=== PATIENT | male | born 1990 | race Caucasian/White ===

== ENCOUNTER 2022-10-06 09:14 | Emergency (ER) | payer OTHER, SELFPAY ==
--- NOTE | ~2022-10-06 | XR_ITS ---
EXAMINATION: XR KNEE, LEFT CLINICAL INFORMATION: Pain after kneeling COMPARISON: None available. TECHNIQUE: Four views of the left knee. FINDINGS: A small joint effusion may be present. Bones and soft tissues are otherwise unremarkable. No fracture. Alignment is anatomic. Joint spaces are well maintained. No abnormal soft tissue calcification. XR/XR knee LT 4V IMPRESSION: A small joint effusion may be present.
[2022-10-06 09:46] VITALS: BP 142/77; PULSE 76; RESP 16; TEMP 36.2; O2SAT 97; BMI 41.3
--- NOTE | 2022-10-06 12:04 | ED.EXTPRO ---
HPI - Extremity Problem General Chief complaint: Extremity Problem Stated complaint: Left leg pain Time Seen by Provider: 10/06/22 11:34 Source: patient and RN notes reviewed Mode of arrival: ambulatory Limitations: no limitations History of Present Illness HPI Narrative: This is a 32-year-old male, with no known past medical history, who presents emergency department with complaints of left knee pain x3 days. Patient reports that he was kneeling for prolonged period of time on carpeted concrete wall he is trying to move, and noticed that he had increasing pain since. He states the pain worsens with ambulation and weight-bearing. He has been using crutches and and knee brace without any relief. He took ibuprofen yesterday which provided him with little relief. Denies any fevers or chills. He otherwise feels well. Related Data Previous Rx's Medication Instructions Recorded ibuprofen 600 mg tablet 600 mg PO Q6H PRN pain #45 tabs 10/06/22 Allergies Allergy/AdvReac Type Severity Reaction Status Date / Time No Known Allergies Allergy Verified 10/06/22 09:21 Review of Systems Review of Systems: Constitutional: No Weight loss, No Fever, No Chills, No Night Sweats, No Fatigue, No Malaise ENT/Mouth: No Hearing loss, No Ear Pain, No Nasal Congestion, No Sinus Pain, No Hoarseness, No sore throat, No Rhinorrhea, No Swallowing Difficulty Eyes: No Eye Pain, No Swelling, No Redness, No Foreign Body, No Discharge, No Vision Changes Cardiovascular: No Chest Pain, No SOB, No Dyspnea on Exertion, No Orthopnea, No Edema, No Palpitations Respiratory: No Cough, No Sputum, No Wheezing, No Smoke Exposure, No Dyspnea Gastrointestinal: No Nausea, No Vomiting, No Diarrhea, No Constipation, No Abdominal pain, No Hematochezia, No Melena Genitourinary: No irregular bleeding, No Dysuria, No Urinary Frequency, No Hematuria, No Urinary Incontinence/retention, No Urgency, No Flank Pain, No Urinary Flow Changes, No Hesitancy Musculoskeletal: +knee pain No joint pain, No Myalgias, No Joint Swelling Skin: No Skin Lesions, No rash Neuro: No Weakness, No Numbness, No Paresthesias, No Loss of Consciousness, No Dizziness, No Headache Psych: No Anxiety/Panic, No Depression, No SI/HI/AH/VH, No Social Issues, Heme/Lymph: No Bruising, No Bleeding,No Lymphadenopathy Endocrine: No Polyuria, No Polydipsia, No Temperature Intolerance [facility] Social History Social History Advance Directives: No Physical Exam Vital Signs: Vital Signs: Last Vital Signs Temp 97.1 F 10/06/22 09:46 Pulse 76 10/06/22 09:46 Resp 16 10/06/22 09:46 BP 142/77 H 10/06/22 09:46 Pulse Ox 97 10/06/22 09:46 O2 Del Method Room Air 10/06/22 09:46 BMI result Body Mass Index 41.3 General: Awake, alert, and oriented X3. No acute distress. HEENT: Normal inspection CVS: Normal heart rate and rhythm. Pulses normal. Respiratory: No respiratory distress Skin: Warm, dry, no rashes noted to exposed skin. Normal skin color. Normal skin turgor. Extremities: Left knee with effusion, no erythema. No patellar ballottement, tenderness to palpation along the left medial and lateral joint line. Mild tenderness with varus and valgus strain, anterior and posterior drawer test negative. No calf tenderness Neuro: Oriented X 3. No motor deficit. No sensory deficit. Medical Decision Making Medical Decision Making MDM Narrative: 32-year-old male, no medical history, presenting to the emergency department for left knee pain x3 days. Patient had prolonged time on his knees while he has been moving. On examination patient has mild tenderness on the mediolateral joint line, no patellar ballottement. Negative anterior drawer, pain with varus and valgus strain. X-rays obtained revealing small joint effusion, patient presenting to the emergency department with crutches, patient given Antwon wrap and crutches, prescription for ibuprofen, given RICE education, and return precautions should his symptoms worsen. Also given referral to [facility] as needed. Patient understands and agrees with plan. Differential Diagnosis Differential Diagnoses: The differential diagnosis associated with the presentation includes Left knee strain, sprain, contusion, ligamentous injury, effusion, fracture Radiology Impression Discussion of test interpretation with radiology: I have reviewed the radiologist's reading. Radiologist Impression: EXAMINATION: XR KNEE, LEFT CLINICAL INFORMATION: Pain after kneeling? COMPARISON: None available.? TECHNIQUE: Four views of the left knee. FINDINGS: A small joint effusion may be present. Bones and soft tissues are otherwise unremarkable. No fracture. Alignment is anatomic. Joint spaces are well maintained. No abnormal soft tissue calcification.? XR/XR knee LT 4V IMPRESSION: A small joint effusion may be present. ? Dictated By: iB Marmolejo MD Signed By: <Electronically signed by Bi Marmolejo MD in OV> 10/06/22 1108 DD/ 1003 TD/TT:? Field Contractor: Discharge Plan Discharge Clinical Impression: Knee pain, left Patient Disposition: Home, Self-Care Instructions: Knee Pain (ED) Additional Instructions: Your x-ray showed a small joint effusion, which means you have swelling around your knee. Please wear Antwon wrap and use crutches over the next couple a days. Rest, ice, using the Antwon wrap, and elevation will help reduce the inflammation. Take prescribed medication as directed. If any new or worsening symptoms occur please return for re-evaluation. I have included a referral to Orthopedics should her symptoms not resolve you can follow-up. Call for an appointment. Prescriptions: New ibuprofen 600 mg tablet 600 mg PO Q6H PRN (Reason: pain) Qty: 45 0RF Referrals: [facility] [Provider Group] Stand Alone Forms: Work/School Release Interventions: ED Discharge Assessment Last Done: 10/06/22 12:11 Discharge Date/Time: 10/06/22 12:12
== END 2022-10-06 12:12 | disposition home or self-care (01) ==
PROVIDERS: Emergency Provider Internal Medicine
DX: M25.562 Pain in left knee (principal)
CPT/HCPCS: 73564; 99282; 99283

== ENCOUNTER 2024-05-24 10:22 | Outpatient (REF) | payer OTHER, SELFPAY ==
--- OUTSIDE RECORDS SUMMARY | 2024-05-24 13:43 | XMS_ITS | Clinical Summary ---
Author Organization [facility] Address [address] [place] [address] Care Team Providers Care Operations Label Clerk Name Role Phone Unavailable Primary Care Provider Unavailabl e Allergies No known active allergies Medications No known medications Active Problems No known active problems Social History Tobacco Use Types Packs/Day Years Used Date Smoking Tobacco: Light Smoker Cigarettes Smokeless Tobacco: Never Alcohol Use Standard Drinks/Week Comments Yes 0 (1 standard drink = 0.6 oz pur e alcohol) Social Sex and Gender Information Value Date Recorded Sex Assigned at Not on file Legal Sex Male 4:45 PM EST Gender Identity Not on file Sexual Orientation Not on file Last Filed Vital Signs Vital Sign Reading Time Taken Comments Blood Pressure 139/86 06/04/2015 5:12 PM EST Pulse 93 06/04/2015 5:12 PM EST Temperature 37.1 ??C (98.7 ??F) 06/04/2015 5:12 PM ES T Respiratory Rate 20 06/04/2015 5:12 PM EST Oxygen Saturation - - Inhaled Oxygen Concentration - - Weight - - Height - - Body Mass Index - - Plan of Treatment Health Maintenance Due Date Last Done Comments Hepatitis C Screening 1991 DTaP/Tdap/Td (1 - Tdap) 2009 Hep B (1 of 3 - 19+ 3-dose series) 2010 COVID-19 Vaccine (2023-2 5 season) 2024 Influenza (#1) 2024 Zoster (Shingrix) (1 of 2) 2041 HPV Vaccine Aged Out No longer eligi ble based on patient's age to complete this topic Hep A Aged Out No longer eligi ble based on patient's age to complete this topic Hib Aged Out No longer eligi ble based on patient's age to complete this topic Meningococcal ACWY Aged Out No longer eligible based on patient's age to complete this topic Pneumococcal Aged Out No longer eligi ble based on patient's age to complete this topic Insurance * Guarantor: [employer] Account Type Relation to Patient Date of Phone Billing Address Personal/Family [address] [place] [id number] BCBS FEE FOR SERVICE PPO
[2024-05-24 14:56] LABS: Influenza A PCR POSITIVE (Negative); Influenza B PCR NEGATIVE (Negative); Resp Syncy Virus RNA Qual PCR NEGATIVE (Negative); SARS COV2 PCR INHOUSE NEGATIVE (Negative)
== END 2024-05-24 10:23 | disposition home or self-care (01) ==
LOC: HO.LAB 10:22
PROVIDERS: Nurse Practitioner Family
DX: R09.89 Other specified symptoms and signs involving the circulatory and respiratory systems (principal); J06.9 Acute upper respiratory infection, unspecified
CPT/HCPCS: 0241U

== ENCOUNTER 2024-05-24 10:22 | Outpatient (AMB) | payer OTHER, SELFPAY ==
--- NOTE | 2024-05-24 11:03 | MHC.OFFWIV ---
Intake Vital Signs 05/24/24 11:07 Weight 273 lb BP 120/84 Blood Pressure Location Lt brachial Position Sitting Pulse 104 H Pulse Source Pulse Oximeter Temp 98.5 F Temp Source Oral Pulse Oximetry (%) 97 Oxygen Delivery Method Room Air Intake Visit Reasons: EP Chest congestion, cough, congestion Intake Note: Patient here for chest congestion, cough which has been present for 11 days. Patient Tobacco Use Status: Never used Tobacco Allergies No Known Allergies Allergy (Verified 05/24/24 11:08) Do you need a note to return to daycare/school/sports/work: No HPI HPI Comments History of Present Illness Details 34 y/o male patient who presents to the walk in clinic with c/o URI symptoms since last Tuesday. PFSH Social History Patient Tobacco Use Status: Never used Tobacco Review of Systems Const All systems reviewed & are unremarkable except as noted in HPI and below Physical Exam Vital Signs: Last Vital Signs Temp 98.5 F 05/24/24 11:07 Pulse 104 H 05/24/24 11:07 BP 120/84 05/24/24 11:07 Pulse Ox 97 05/24/24 11:07 Oxygen Delivery Method Room Air 05/24/24 11:07 Const General: cooperative and no acute distress Nutritional Appearance: obese morbidly obese Orientation/consciousness: patient oriented x3 HEENT Head: Yes normocephalic Ears: external ears normal and TM's normal bilaterally General nose exam: Nasal discharge present Face and sinus: Yes sinuses nontender Mouth: moist mucous membranes Throat: Yes posterior oropharynx normal Resp Effort & Inspection: normal respiratory effort and able to speak in complete sentences Auscultation: clear to auscultation bilaterally, no crackles, no rales, no rhonchi and no wheezes Cardio Heart sounds: S1 normal heart sound present and S2 normal heart sound present Neuro General: patient oriented x3 Assessment & Plan Assessment & Plan (1) Acute respiratory disease: Code(s): J06.9 - Acute upper respiratory infection, unspecified Plan: Ordered SARs Acetaminophen for pain relief. OTC cold remedies. Rest and hydrate well with fluids. Orders: Orders SARS-CoV2/FLU/RSV Today R09.89 - Other specified symptoms and signs involving the circulatory and respiratory systems Medications: Discontinued ibuprofen Discontinued Reason: Patient no longer taking 600 mg PO Q6H PRN 45 tabs 0RF pain Coding Level of Care Code Est Pt Level 3 (89531) Diagnoses Acute respiratory disease J06.9 Time Spent (min) 15
[2024-05-24 11:07] VITALS: BP 120/84; PULSE 104; TEMP 36.9; O2SAT 97
== END 2024-05-24 11:30 | disposition home or self-care (01) ==
PROVIDERS: Visit Provider Nurse Practitioner Family
DX: J06.9 Acute upper respiratory infection, unspecified (principal)

== ENCOUNTER 2024-09-05 13:30 | Outpatient (REF) | payer OTHER, SELFPAY ==
--- NOTE | ~2024-09-05 | XR_ITS ---
EXAMINATION: XR FOOT, LEFT CLINICAL INFORMATION: M79.672 - Pain in left foot COMPARISON: None available. TECHNIQUE: AP, lateral, and oblique views of the left foot. FINDINGS: No fracture, dislocation, or suspicious bone lesion. Normal bone mineralization. Normal alignment. Joint spaces are preserved. No significant arthropathy. Normal plantar arch. Tiny plantar and dorsal calcaneal spurs. Soft tissues appear normal. XR/XR foot LT 2V IMPRESSION: 1. No acute bony abnormalities. Electronically signed by: Eb Ludwig MD 09/05/2024 02:12 PM EDT
== END 2024-09-05 13:31 | disposition home or self-care (01) ==
LOC: HO.HMGCX 13:30
PROVIDERS: Visit Provider Physician Assistant
DX: M79.672 Pain in left foot (principal)
CPT/HCPCS: 73620

== ENCOUNTER 2024-09-05 13:30 | Outpatient (AMB) | payer OTHER, SELFPAY ==
--- NOTE | 2024-09-05 13:31 | AM.OFFWIN_ITS ---
Intake Vital Signs 09/05/24 13:34 Weight 273 lb BP 126/80 Blood Pressure Location Rt brachial Position Sitting Pulse 86 Pulse Source Pulse Oximeter Pulse Oximetry (%) 98 Oxygen Delivery Method Room Air Intake Visit Reasons: EP- hurt LT foot on outside of foot Intake Note: Patient here for radiating left foot pain that has been present for about 2 days. Patient Tobacco Use Status: Never used Tobacco Allergies No Known Allergies Allergy (Verified 09/05/24 13:34) Do you need a note to return to daycare/school/sports/work: Yes HPI HPI Comments History of Present Illness Details He presents to office with L lateral foot Ongoing x a few days Last week he twisted R ankle and put more pressure on his L Similar feeling in L lateral foot with previous fx Using a walking boot while on feet Pain level better with rest 2/10 Walking makes worse Used tylenol/motrin and ice with elevation [facility] Medical History (Updated 09/05/24 @ 13:39 by Selena Dumont PA-C) Influenza A Social History Patient Tobacco Use Status: Never used Tobacco Review of Systems Const Denies chills and Denies fever(s) Musc Reports deformity, Reports arthralgias and Reports joint swelling Skin/Breast Reports skin pain and Reports skin swelling Neuro Denies paresthesias Physical Exam Vital Signs: Last Vital Signs Pulse 86 09/05/24 13:34 BP 126/80 09/05/24 13:34 Pulse Ox 98 09/05/24 13:34 Oxygen Delivery Method Room Air 09/05/24 13:34 General: Non-toxic, NAD. Speaking full sentences. Skin: Warm dry throughout. moderate edema LLE dorsal aspect of foot near proximal 4/5th metatarsal bone. No laceration or abrasion. No other bilateral lower extremity edema Eye: EOMI Respiratory: No respiratory distress Cardiac: DP pulse intact LLE MSK: RLE- no tenderness to palpation LLE- Pt has + ttp to proximal 4/5th metatarsal bones. No digit. achilles, metatarsal 1-3 or calcaneus ttp. + full ROM dorsal/plantar flexion with some discomfort felt. Neurology: Alert. No aphasia or facial droop. Gait with slight limp using walking boot. Psych: Good mood and affect Assessment & Plan Assessment & Plan (1) Foot pain, left: Code(s): M79.672 - Pain in left foot Plan: Patient seen and evaluated. No RLE symptoms LLE xray: i viewed no fx Rest, ice, elevate nsaids Patient gave verbal understanding and had no additional questions or concerns at time of discharge All questions answered Orders: Orders XR foot LT 2V Today M79.672 - Pain in left foot Coding Level of Care Code Est Pt Level 3 (98503) Diagnoses Foot pain, left M79.672
[2024-09-05 13:34] VITALS: BP 126/80; PULSE 86; O2SAT 98
--- OUTSIDE RECORDS SUMMARY | 2024-09-05 14:45 | XMS_ITS | Clinical Summary ---
Author Organization [facility] Address [address] [place] [address] Care Team Providers Care Elastic Attacher Coverstitch Name Role Phone Unavailable Primary Care Provider [...] - 19+ 3-dose series) 2010 COVID-19 Vaccine ( - 2023-2 5 season) 2024 Influenza (Season Ended) 2024 Zoster (Shingrix) (1 of 2) 2041 [...] Patient Date of Phone Billing Address Personal/Family [address] [place] [id number] [employer] FEE FOR SERVICE PPO
== END 2024-09-05 14:10 | disposition home or self-care (01) ==
PROVIDERS: Visit Provider Physician Assistant
DX: M79.672 Pain in left foot (principal)

== ENCOUNTER → 2024-09-05 13:58 | Outpatient (BNV) | payer OTHER, SELFPAY | PROVIDERS: Visit Provider Radiology Diagnostic Radiology | DX: M79.672 Pain in left foot (principal) | CPT/HCPCS: 73620 ==

== ENCOUNTER 2025-01-02 11:49 | Outpatient (AMB) | payer OTHER, SELFPAY ==
[2025-01-02 12:37] VITALS: BP 106/60; PULSE 85; TEMP 36.7; O2SAT 97; BMI 39.1
--- NOTE | 2025-01-02 12:37 | AM.OFFWIN_ITS ---
Intake Vital Signs 01/02/25 12:37 Height 5 ft 9 in Weight 265 lb BMI 39.1 BP 106/60 Blood Pressure Location Lt brachial Position Sitting Pulse 85 Pulse Source Pulse Oximeter Temp 98.0 F Temp Source Oral Pulse Oximetry (%) 97 Oxygen Delivery Method Room Air Intake Visit Reasons: EP-lt side sore throat, lt ear pain, lt neck pain Patient Tobacco Use Status: Never used Tobacco Allergies amoxicillin Allergy (Intermediate, Verified 01/02/25 12:40) Rash Do you need a note to return to daycare/school/sports/work: No HPI HPI Comments History of Present Illness Details History - The patient is a 34-year-old male pres enting with left sided neck pain, ear pain, and throat discomfort. - Symptoms began 4 days ago with a sensa tion of a pulled neck muscle, progressing to ear pain, throat discomfort, and jaw pain. - No history of ear infections, recent f baron, change in hearing, drainage from ear or recent swimming. - The patient has an allergy to amoxicil rafael, previously causing a full-body rash. Physical Exam General: Cooperative, healthy appearing, comfortable and no acute distress Orientation/consciousness: Patient oriented x3 Limitations: No limitations Head: Normal to inspection Ears: Hearing grossly normal bilaterally, external ears normal and TM's normal right, left TM with erythema but no infection noted Nose: Normal external nose present, Normal nares present and No nasal discharge present Face and sinus: Normal facial exam and Yes sinuses nontender Mouth: Normal oral and palatal mucosa present and moist mucous membranes Throat: Yes tonsils normal, Yes uvula midline. Posterior oropharynx erythema, no exudates Eyes: Appearance normal, both eyes and all related structures Neck: Normal visual inspection, full ROM, TTP left side Respiratory: Normal respiratory effort, able to speak in complete sentences, not Actively coughing, no respiratory distress, not tachypneic, no tripod positioning and no use of accessory muscles Skin: No rashes or lesions noted Neuro: Patient oriented x3 Extremities: Normal to inspection and Yes no clubbing, cyanosis or edema [facility] Medical History (Updated 01/02/25 @ 13:18 by Zulma Edwards PA-C) Influenza A Social History Patient Tobacco Use Status: Never used Tobacco Review of Systems Const All systems reviewed & are unremarkable except as noted in HPI and below Physical Exam Vital Signs: Last Vital Signs Temp 98.0 F 09/03/25 12:37 Pulse 85 01/02/25 12:37 BP 106/60 01/02/25 12:37 Pulse Ox 97 01/02/25 12:37 Oxygen Delivery Method Room Air 01/02/25 12:37 BMI result Body Mass Index 39.1 Assessment & Plan Assessment & Plan (1) Otalgia of left ear: Code(s): H92.02 - Otalgia, left ear Plan: Patient was informed and verbally consented to the use of an ambient scribe for clinic note documentation during this visit Viral Upper Respiratory Infection - Conducted a viral panel to rule in/out viral infection. - Recommended symptomatic treatment with [id number] Flonase to reduce inflammation. - Advised to increase fluid intake to help clear lymph nodes. - If viral panel negative, cefpodoxime will be prescribed as an alternative to amoxicillin due to allergy. Patient will wait and see how he feels, if pain progresses, he will start the antibiotic. Orders: Orders Resp Pathogen Panel [place] [facility] Today J06.9 - Acute upper respiratory infection, unspecified Coding Level of Care Code New Pt Level 3 (42073) Diagnoses Otalgia of left ear H92.02
--- OUTSIDE RECORDS SUMMARY | 2025-01-02 14:23 | XMS_ITS | Clinical Summary ---
Author Organization [facility] Address [address] [place] [address] Care Team Providers Care Air Deodorizer Servicer Name Role Phone Unavailable Primary Care Provider [...] 93 06/04/2015 5:12 PM EST Temperature 37.1 C (98.7 F) 06/04/2015 5:12 PM EST Respiratory Rate 20 06/04/2015 5:12 PM EST [...] (Shingrix) (1 of 2) 2041 HPV Vaccine (No Doses Required) Completed Hep A Aged Out No longer eligi [...] Patient Date of Phone Billing Address Personal/Family [address] [place] [phone] BCBS FEE FOR SERVICE PPO
== END 2025-01-02 13:15 | disposition home or self-care (01) ==
PROVIDERS: Visit Provider Physician Assistant
DX: H92.02 Otalgia, left ear (principal)

== ENCOUNTER 2025-01-02 11:49 | Outpatient (REF) | payer OTHER, SELFPAY ==
--- OUTSIDE RECORDS SUMMARY | 2025-01-02 15:22 | XMS_ITS | Patient Health Record ---
Author Organization [facility] Address [address] [facility] [place] [address] Care Team Providers Care Cardiovascular Surgical Tech Name Role Phone Jignesh Poe Unavailable [phone] Reason For Referral No Information Medications Medication SIG (Take, Route, Fr equency, Duration) Notes Start Date End Date Status Cephalexin 500 MG 1 tablet Orally Twic e a day; Duration: 10 day(s) Not-Taking Social History Tobacco use other than smoking: Question Answer Notes Are you an other tobacco user? No Problems No Known Problems Plan Of Treatment Pending Test Test Name Order Date 20584- Debride <25 sq cm 06/21/2019 96857 I&D ABSCESS- SIMPLE,SINGLE 016 48253- I&D ABSCESS-COMPLICATED,MULTI 08/2019 Insurance Providers Payer Name Payer Address Payer Phone Subscriber Number Group Number Insured Name Patient Relationship to Insured Coverage Start Date Coverage End Date [facility] [id number] [place] [phone] [id number] Ant Deluna Self - patient is the insured Medical (General) History Medical History History ICD Code Back,Hip,and Knee pain Broken bones Chicken pox Surgical History Surgery Date(Month/Year)
[2025-01-02 17:35] LABS: Chlamydia pneumoniae PCR Not Detected (Not Detect.); Coronavirus 229E PCR Not Detected (Not Detect.); Coronavirus HKU1 PCR Not Detected (Not Detect.); Coronavirus NL63 PCR Not Detected (Not Detect.); Coronavirus OC43 PCR Not Detected (Not Detect.); RSV PCR Not Detected (Not Detect.); Rhino/Enterovirus PCR Not Detected (Not Detect.)
[2025-01-02 17:37] LABS: Influenza A H1 PCR Not Detected (Not Detect.); Influenza A H1-2009 PCR Not Detected (Not Detect.); Influenza A H3 PCR Not Detected (Not Detect.); SARS-CoV-2 PCR Not Detected (Not Detect.)
== END 2025-01-02 11:50 | disposition home or self-care (01) ==
LOC: HO.LAB 11:49
PROVIDERS: Visit Provider Physician Assistant
DX: H92.02 Otalgia, left ear (principal)
CPT/HCPCS: 87633

== ENCOUNTER 2025-03-23 19:10 | Emergency (ER) | payer OTHER, SELFPAY ==
[2025-03-23 19:15] VITALS: BP 180/90; PULSE 84; O2SAT 98
[2025-03-23 19:24] VITALS: BP 141/85; PULSE 85; RESP 18; TEMP 36.7; O2SAT 95; BMI 41.3
--- OUTSIDE RECORDS SUMMARY | 2025-03-23 19:46 | XMS_ITS | Clinical Summary ---
Author Organization [facility] Address [address] [place] [address] Care Team Providers Care Production Tool Engineer Name Role Phone Unavailable Primary Care Provider [...] - 19+ 3-dose series) 2010 COVID-19 Vaccine (2024-2 6 season) 2024 Influenza (#1) 2024 Zoster (Shingrix) [...] Patient Date of Phone Billing Address Personal/Family [address] [place] [phone] [employer] FEE FOR SERVICE PPO
--- OUTSIDE RECORDS SUMMARY | 2025-03-23 19:46 | XMS_ITS | Patient Health Record ---
Author Organization [facility] Address [address] [facility] [place] [address] Care Team Providers Care Director Of Recruitment And Admissions Name Role Phone Jignesh Poe Unavailable [phone] Reason For Referral No Information Medications Medication SIG (Take, Route, Fr equency, Duration) Notes Start Date End Date Status Cephalexin 500 MG 1 tablet Orally Twic e a day; Duration: 10 day(s) Not-Taking Social History Tobacco use other than smoking: Question Answer Notes Are you an other tobacco user? No Problems No Known Problems Plan Of Treatment Pending Test Test Name Order Date 92373- Debride <25 sq cm 06/21/2019 32770 I&D ABSCESS- SIMPLE,SINGLE 016 33334- I&D ABSCESS-COMPLICATED,MULTI 08/2019 Insurance Providers Payer Name Payer Address Payer Phone Subscriber Number Group Number Insured Name Patient Relationship to Insured Coverage Start Date Coverage End Date [facility] [id number] [address] [place] [address] [id number] Ant Deluna Self - patient is the insured Medical (General) History Medical History History ICD Code Back,Hip,and Knee pain Broken bones Chicken pox Surgical History Surgery Date(Month/Year)
--- NOTE | 2025-03-23 20:04 | ED_ITS ---
HPI - General Adult General Chief complaint: Epistaxis Stated complaint: nosebleed starting 45 mins ago. still bleeding Time Seen by Provider: 03/23/25 19:40 Source: patient Mode of arrival: ambulatory Limitations: no limitations History of Present Illness ED Provider: DR. Neumann HPI narrative: 34-year-old male came in for evaluation of right nostril bleed started 2 hours before presentation, patient declined any trauma or injury to the nose, not taking anticoagulation or antiplatelet medication. Patient applied pressure with no resolution of the bleed, no dizziness, no lightheadedness, no headache. Related Data Previous Rx's ?Medication ?Instructions ?Recorded cefpodoxime 200 mg tablet 200 mg PO Q12H #14 tabs 08/24 Allergies Allergy/AdvReac Type Severity Reaction Status Date / Time amoxicillin Allergy Intermediate Rash Verified 03/23/25 19:28 Review of Systems 2 Review of Systems: All other systems are reviewed and are negative Constitutional: Reports as per HPI and Reports no additional constitutional complaints Eyes: Reports as per HPI and Reports no additional eye complaints Reports system reviewed and no additional complaints, except as documented Cardiovascular: Reports as per HPI and Reports no additional cardiovascular complaints Respiratory: Reports as per HPI and Reports no additional respiratory complaints Gastrointestinal: Reports as per HPI and Reports no additional gastrointestinal complaints Genitourinary: Reports no additional female genitourinary complaints Musculoskeletal: Reports no additional musculoskeletal complaints Skin/Breast: Reports system reviewed and no additional complaints, except as docu Psychiatric: Reports no additional psychiatric complaints Endocrine: Reports no additional endocrine complaints Hematologic/Lymphatic: Reports no additional hematologic/lymphatic complaints Allergic/Immunologic: Reports no additional allergic/immunologic complaints Reports system reviewed and no additional complaints, except as documented and Reports Abnormal speech present [facility] Past Medical History Medical History Influenza A Social History Social History Patient Tobacco Use Status: Never used Tobacco Advance Directives: No Advance Directives Information Provided: Yes Physical Exam ED Vital Signs: Vital Signs - 24 hr 03/23/25 19:24 Temperature 98.0 F Pulse Rate 85 Respiratory Rate 18 Blood Pressure 141/85 H Pulse Oximetry 95 Oxygen Delivery Method Room Air BMI result Body Mass Index 41.3 Vital signs have been reviewed and appear to be correct. Blood pressure elevated. Heart rate normal. Respiratory rate normal. Temperature normal. Oxygen saturation normal. Appearance: Alert. Oriented X3. No acute distress. Head: Normal external exam. Normocephalic. Atraumatic. No Haro signs noted. No raccoon eyes noted Eyes: PERRLA. EOMI. Conjunctiva and sclera normal. Eyelids normal. ENT: Right nostril dry blood with no active bleeding or definite source of bleed, TM's Normal. Pharynx normal. Uvula midline. Moist mucous membranes. No trismus noted. No drooling noted. No muffled voice noted. Neck: Normal inspection. Neck supple. FROM. No adenopathy. Thyroid Normal. No meningeal signs. No neck mass noted. CVS: Normal heart rate and rhythm. Heart sound normal. No murmurs noted. Pulses normal throughout. Respiratory: No respiratory distress. Painless inspiration. Breath sounds normal. No wheezes/rales/rhonchi noted. Chest nontender. No accessory muscle usage noted or decreased air movement noted. Abdomen: Soft and nontender. Bowel sounds normal in all 4 quadrants. No distention noted. No organomegaly noted. No visible injury noted. Back: No CVA tenderness. Full range of motion noted. Skin: Skin warm and dry. Normal skin color. Normal skin turgor. No rashes/lesions/lacerations noted. Extremities: No lower extremity edema. Extremities exhibit normal range of motion. Extremities nontender. Neuro: Oriented X 3. Cranial nerve exam: II-XII are grossly intact No motor deficit. No sensory deficit. Reflexes normal. Course Reevaluation(s) Reevaluation #1: Patient was observed in the emergency department with 2 x 2 gauze packing and external nasal pressure was applied, now no active bleeding, normal platelet, stable H&H, no coagulopathy. Time: 23:30 Medical Decision Making Differential Diagnosis Differential Diagnoses: The differential diagnosis associated with the presentation includes ( Active epistaxis, severe anemia, thrombocytopenia, coagulopathy.) Admission/Observation Consideration of admission/observation: Escalation of care including admission/observation considered Lab Data MDM Lab Attestation statement: I reviewed the patient's lab results. 03/23/25 20:35 Labs: Lab Results 03/23/25 Range/Units 20:35 WBC 7.7 (4.8-10.8) X10*3/uL RBC 5.21 (4.60-5.80) X10*6/uL Hgb 14.4 (14.0-18.0) g/dl Hct 42.2 (42.0-52.0) % MCV 81.0 (80.0-98.0) fL MCH 27.6 (27.0-33.0) pg MCHC 34.1 (31.0-36.0) g/dl RDW 12.6 (11.0-16.0) % Plt Count 281 (160-400) X10*3/uL MPV 8.8 L (9.4-12.4) fL Immature Gran % (Auto) 0.1 (0.0-0.4) % Neut % (Auto) 64.1 (45-73) % Lymph % (Auto) 21.6 (20-40) % [place] % (Auto) 11.2 H (2-11) % Eos % (Auto) 2.0 (0-4) % Baso % (Auto) 1.0 (0-2) % Lymph # (Auto) 1.7 (1.2-4.9) X10*3/uL [place] # (Auto) 0.9 (0.1-1.2) X10*3/uL Eos # (Auto) 0.2 (0.0-0.4) X10*3/uL Baso # (Auto) 0.1 (0.0-0.2) X10*3/uL Abs Immat Gran (auto) 0.01 (0.00-0.03) X10*3/uL Absolute Neuts (auto) 4.9 (2.0-8.3) x10*3/uL Absolute Nucleated RBC 0.000 (0.0-0.012) X10*3/uL Nucleated RBC % (auto) 0.0 (0.0-0.2) /100WBC PT 12.2 (11.2-13.5) SEC INR 1.0 (0.9-1.1) Discharge Plan Discharge Clinical Impression: Epistaxis Patient Disposition: Home, Self-Care Instructions: Nosebleed (ED) Prescriptions: No Action cefpodoxime 200 mg tablet 200 mg PO Q12H Qty: 14 0RF Rx Instructions: must administer with a meal/food Print Language: Upper Sorbian
[2025-03-23 20:40] LABS: MANUAL DIFF FLAG NO
[2025-03-23 21:00] LABS: Hematocrit 42.2 % (42.0-52.0); Hemoglobin 14.4 g/dl (14.0-18.0); Imm Gran Abs Auto 0.01 X10*3/uL (0.00-0.03); Imm Gran Pct Auto 0.1 % (0.0-0.4); Lymphocytes Absolute Auto 1.7 X10*3/uL (1.2-4.9); Mean Corpuscular HGB Conc 34.1 g/dl (31.0-36.0); Mean Corpuscular Hemoglobin 27.6 pg (27.0-33.0); Mean Corpuscular Volume 81.0 fL (80.0-98.0); NRBC Abs Auto 0.000 X10*3/uL (0.0-0.012); NRBC Pct Auto 0.0 /100WBC (0.0-0.2); Platelet Count 281 X10*3/uL (160-400); Red Blood Count 5.21 X10*6/uL (4.60-5.80); White Blood Count 7.7 X10*3/uL (4.8-10.8)
[2025-03-23 21:16] LABS: INTERNATIONAL NORM RATIO 1.0 (0.9-1.1); Prothrombin Time 12.2 SEC (11.2-13.5)
[2025-03-24 00:13] VITALS: BP 120/75; PULSE 71; RESP 18; TEMP 36.4; O2SAT 96
== END 2025-03-24 00:14 | disposition home or self-care (01) ==
PROVIDERS: Emergency Provider Emergency Medicine
DX: R04.0 Epistaxis (principal)
CPT/HCPCS: 36415; 85025; 85610; 99283; 99284